=== PATIENT | male | born 1965 | race Caucasian/White ===

== ENCOUNTER → 2019-07-13 14:00 | Outpatient (BNVA) | payer OTHER, MEDICAID, MEDICARE, SELFPAY | PROVIDERS: Family Provider Family Medicine; PCP Family Medicine; Visit Provider Nurse Practitioner Family | DX: I10 Essential (primary) hypertension (principal); Z68.34 Body mass index [BMI] 34.0-34.9, adult | CPT/HCPCS: 80053; 80061; 83721; 84439; 84443 ==